=== PATIENT | male | born 1980 | race Caucasian/White ===

== ENCOUNTER 2024-06-26 12:08 | Emergency (ER) | payer BC ==
[~2024-06-26] VITALS: Ht 172.7 cm; Wt 92.3 kg
[~2024-06-26 12:08] MED LIST: ALSUMA6 MG/0.5 M SQ; ATIVAN 0.50.5 MG/TAB PO; CYMBALTA 60MG60 MG PO; DILAUDID 4MG TAB4 MG PO; FLEXERIL10 MG PO; GI COCKTAIL PO; GLUCOPHAGE XR500 M1 PO; IBUPROFEN800 MG PO; IMODIUM 2MG CAPS2 MG PO; KLONOPIN 0.5MG0.5 MG PO; KLONOPIN 1MG1 MG PO; LAMICTAL 25MG T25 MG PO; LYRICA200 MG PO; MAGNESIUM200 MG PO; METHOCARBAMOL750 MG PO; MS CONTIN 330 MG/TAB PO; MS CONTIN100 MG PO; NORCO 325 MG-101 TAB PO; OXYCONTIN20 MG PO; PEPCID 20MG TAB20 MG PO; PERCOCE PO; PERCOCET 325 MG1 TA2 PO; PERCOCET 500 MG1 TAB PO; PHENERGAN 25 TA25 MG PO; PHENERGAN25 MG RC; RANITIDINE HYD150 MG PO; SINGULAIR10 MG PO; VENTOLIN0.09 MG IH; VYVANSE PO; ZANAFLEX4 M1 PO
[2024-06-26 12:13] VITALS: TEMP 97.8
[2024-06-26] MEDS ORDERED: NS 1,000 ML IV ONE (13:00)
[2024-06-26 13:09] LABS: BASO # 0.1 K/mm3 (0.0-0.2); BASO % 0.6 % (0.0-2.0); EOS # 0.1 K/mm3 (0.0-0.7); EOS % 1.1 % (0.0-4.0); GRAN # 5.4 K/mm3 (1.4-6.5); GRAN % 65.7 % (42.2-75.2); HEMATOCRIT 47.5 % (42.0-52.0); HEMOGLOBIN 17.2 g/dl (13.5-18.0); LYMPH % 24.7 % (20.0-51.0); MEAN CELL VOLUME 89 fl (80.0-100.0); MEAN CORPUSCULAR HEMOGLOBIN 32 pg (27-31); MEAN CORPUSCULAR HGB CONC 36 g/dl (33.0-37.0); MEAN PLATELET VOLUME 9.8 fl (7.4-10.4); MONO # 0.6 K/mm3 (0.1-0.6); MONO % 7.7 % (1.7-9.3); PLATELET COUNT 189 K/mm3 (130-400); RED BLOOD COUNT 5.37 M/mm3 (4.20-5.60); REDCELL DISTRIBUTION WIDTH-CV 12.5 % (11.5-14.5)
[2024-06-26 13:36] LABS: ALBUMIN 3.9 g/dL (3.5-5.0); BILIRUBIN,TOTAL 1.1 mg/dL (0.2-1.2); CALCIUM 8.7 mg/dL (8.4-10.2); CREATININE, serum 0.83 mg/dL (0.72-1.25); POTASSIUM 4.1 mEq/L (3.5-4.5); TOTAL PROTEIN 6.8 g/dl (6.2-8.1)
[2024-06-26 13:42] LABS: TROPONIN-I 0.011 ng/mL (0.00-0.033)
[2024-06-26 14:10] VITALS: BP 134/98; PULSE 88
== END 2024-06-26 14:10 | disposition home or self-care (01) ==
LOC: COL.ER 12:08
PROVIDERS: Physician Assistant
DX: R00.2 Palpitations (principal); M79.7 Fibromyalgia
CPT/HCPCS: J7030